=== PATIENT | female | born 1930 | race Caucasian/White ===

== ENCOUNTER → 2018-01-30 | Outpatient (CLI) | payer MEDICARE ==
[~2018-01-30] MED LIST: CHOL200024 PO; FOLI0.8T2 PO; FURO20TA3 PO; INSU100I28 SC; POTA8TAB6 PO; PRAV20TA2 PO; WARF2TAB99 PO
[2018-01-30 14:58] LABS: BASOPHILS # (AUTO) 0.03 x10^3/uL (0-0.1); BASOPHILS % (AUTO) 1 % (0-1); EOSINOPHILS # (AUTO) 0.07 x10^3/uL (0-0.4); EOSINOPHILS % (AUTO) 2 % (1-7); LYMPHOCYTES # (AUTO) 1.36 x10^3/uL (1-3.4); LYMPHOCYTES % (AUTO) 35 % (22-44); MD NO; MEAN CORPUSCULAR HEMOGLOBIN 24.4 pg (27.0-34.8); MEAN CORPUSCULAR HGB CONC 33.1 g/dL (32.4-35.8); MEAN CORPUSCULAR VOLUME 73.7 fL (80-100); MEAN PLATELET VOLUME 8.3 fL (7.4-10.4); MONOCYTES # (AUTO) 0.45 x10^3/uL (0.2-0.8); MONOCYTES % (AUTO) 12 % (2-9); NEUTROPHILS # (AUTO) 2.02 x10^3/uL (1.8-6.8); NEUTROPHILS % (AUTO) 52 % (42-75); PLATELET COUNT 370 x10^3/uL (130-400); RED BLOOD COUNT 4.38 x10^6/uL (3.82-5.3); RED CELL DISTRIBUTION WIDTH 16.4 % (9.6-15.2)
[2018-01-30 15:06] LABS: ALBUMIN 2.8 g/dL (3.4-5.0); ANION GAP 8 mmol/L (5-15); CALCIUM 9.7 mg/dL (8.5-10.1); CHLORIDE 101 mmol/L (98-107)
[2018-01-30 15:09] LABS: ALANINE AMINOTRANSFERASE 10 U/L (12-78); ALKALINE PHOSPHATASE 112 U/L (45-117); BILIRUBIN,TOTAL 0.5 mg/dL (0.2-1.0); CREATININE 1.79 mg/dL (0.55-1.02); TOTAL PROTEIN 8.8 g/dL (6.4-8.2)
[2018-01-30 15:12] LABS: HEMOGLOBIN A1C 9.1 % (4.2-6.3)
[2018-01-30 17:22] LABS: INTERNATIONAL NORMALIZED RATIO 2.5 (0.93-1.1); PROTHROMBIN TIME 25.3 Seconds (9.6-11.5)
== END | disposition home or self-care (01) ==
LOC: STAR 13:24
PROVIDERS: ATTEND Orthopaedic Surgery
DX: Z01.818 Encounter for other preprocedural examination (principal); S82.021D Displaced longitudinal fracture of right patella, subsequent encounter for closed fracture with routine healing; X58.XXXD Exposure to other specified factors, subsequent encounter
CPT/HCPCS: 36415; 80053; 83036; 85025; 85610; 85730; 87081; 87806; 93005; G0475

== ENCOUNTER 2019-12-28 12:06 | Inpatient (IN) | payer MEDICARE ==
[~2019-12-28] VITALS: Ht 147.3 cm; Wt 43.7 kg
--- NOTE | 2019-12-28 12:15 | NUR ---
PT BIB [facility] FROM HOME FOR INR GREATER THAN 8 PER . PT IS ON COUMADIN 1MG FOR HX DVT. 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 PT MOANS/CRIES WHEN SHE IS MOVED FROM [facility] TO [facility] OR TURNED TO THE SIDE. A&OX2 (AT BASELINE). VSS PER EMS. PT WITH NO COMPLAINTS.
[2019-12-28 12:36] LABS: MEAN CORPUSCULAR HEMOGLOBIN 25.1 pg (27.0-34.8); MEAN CORPUSCULAR HGB CONC 31.6 g/dL (32.4-35.8); MEAN PLATELET VOLUME 9.8 fL (7.4-10.4); PLATELET COUNT 224 x10^3/uL (130-400); RED BLOOD COUNT 3.47 x10^6/uL (3.82-5.3); RED CELL DISTRIBUTION WIDTH 18.8 % (9.6-15.2)
[2019-12-28 12:47] LABS: ALBUMIN 1.7 g/dL (3.4-5.0); ANION GAP 9 mmol/L (5-15); CALCIUM 9.5 mg/dL (8.5-10.1); CHLORIDE 99 mmol/L (98-107)
--- NOTE | 2019-12-28 12:49 | NUR ---
ERP AT NOW.
[2019-12-28 13:09] LABS: BASOPHILS # (AUTO) 0.02 x10^3/uL (0-0.1); BASOPHILS % (AUTO) 1 % (0-1); EOSINOPHILS # (AUTO) 0.02 x10^3/uL (0-0.4); EOSINOPHILS % (AUTO) 1 % (1-7); LYMPHOCYTES # (AUTO) 0.53 x10^3/uL (1-3.4); LYMPHOCYTES % (AUTO) 20 % (22-44); MD SCAN; MONOCYTES # (AUTO) 0.34 x10^3/uL (0.2-0.8); MONOCYTES % (AUTO) 13 % (2-9); NEUTROPHILS # (AUTO) 1.78 x10^3/uL (1.8-6.8); NEUTROPHILS % (AUTO) 66 % (42-75)
[2019-12-28 13:14] LABS: INTERNATIONAL NORMALIZED RATIO 11.65 (0.93-1.1); PROTHROMBIN TIME 126.6 Seconds (9.6-11.5)
--- NOTE | 2019-12-28 13:28 | NUR ---
STRAIGHT CATH DONE. FOB TEST DONE BY ERP. PT TOLERATED WELL. POC RV'WD WITH PT AND .
[2019-12-28] MEDS ORDERED: PHYTONADIONE 5 MG TABLET PO ONE (13:30)
[2019-12-28 13:32] LABS: MICROSCOPIC INDICATED
[2019-12-28] MEDS ORDERED: SODIUM CHLORIDE FLUSH 10ML SYR IVF PRN (14:00)
[2019-12-28] MEDS ORDERED: CEFTRIAXONE PMX 1GM/50ML 50 ML IV ONE (14:00)
[2019-12-28] MEDS ORDERED: CEFTRIAXONE PMX 1GM/50ML 50 ML ONE (14:27)
[2019-12-28 15:15] VITALS: BP 150/69
--- NOTE | 2019-12-28 15:17 | NUR ---
FFP INFUSING. PT AWAKE, NO S/S OF DISTRESS. PT AND UNDERSTAND PLAN FOR ADMISSION.
[2019-12-28 15:30] VITALS: BP 163/65
[2019-12-28 16:05] VITALS: BP 153/65
[2019-12-28 16:22] VITALS: BP 170/73
--- NOTE | 2019-12-28 16:22 | NUR ---
TASK RN: [facility]FP TRANSFUSION COMPELTE. PT TOLERATING WELL
[2019-12-28] MEDS ORDERED: IRON PO (17:04)
[2019-12-28] MEDS ORDERED: POLYETHYLENE GLYCOL 17 GM PACKET PO PRN (18:30)
[2019-12-28] MEDS ORDERED: BISACODYL 10 MG SUPP PR PRN (18:30)
[2019-12-28] MEDS ORDERED: DOCUSATE 100 MG CAPSULE PO PRN (18:30)
[2019-12-28 18:42] LABS: INTERNATIONAL NORMALIZED RATIO 2.69 (0.93-1.1); PROTHROMBIN TIME 28.8 Seconds (9.6-11.5)
[2019-12-28 19:30] VITALS: BP 134/74
[2019-12-28] MEDS: SODIUM CHLORIDE 0.9% 1,000 ML IV SCH (21:03)
[2019-12-28] MEDS: INSULIN GLARGINE 100 UNITS/ML, PEN SQ-INSULIN SCH (21:03)
[2019-12-28] MEDS: PRAVASTATIN 20 MG TABLET PO SCH (21:03)
[2019-12-28 21:40] LABS: INTERNATIONAL NORMALIZED RATIO 2.41 (0.93-1.1); PROTHROMBIN TIME 25.8 Seconds (9.6-11.5)
[2019-12-29 00:17] VITALS: BP 118/71
[2019-12-29 06:33] LABS: MEAN CORPUSCULAR HEMOGLOBIN 25.3 pg (27.0-34.8); MEAN CORPUSCULAR HGB CONC 32.4 g/dL (32.4-35.8); MEAN PLATELET VOLUME 9.2 fL (7.4-10.4); PLATELET COUNT 185 x10^3/uL (130-400); RED BLOOD COUNT 2.99 x10^6/uL (3.82-5.3); RED CELL DISTRIBUTION WIDTH 18.4 % (9.6-15.2)
[2019-12-29 06:41] LABS: INTERNATIONAL NORMALIZED RATIO 1.38 (0.93-1.1); PROTHROMBIN TIME 14.7 Seconds (9.6-11.5)
[2019-12-29 06:44] LABS: ALBUMIN 1.6 g/dL (3.4-5.0); ANION GAP 7 mmol/L (5-15); CHLORIDE 103 mmol/L (98-107)
[2019-12-29 06:50] VITALS: BP 142/55
[2019-12-29 06:56] LABS: ALANINE AMINOTRANSFERASE 10 U/L (12-78); ALKALINE PHOSPHATASE 93 U/L (45-117); BILIRUBIN,TOTAL 0.5 mg/dL (0.2-1.0); CREATININE 1.01 mg/dL (0.55-1.02); TOTAL PROTEIN 6.5 g/dL (6.4-8.2)
[2019-12-29 06:57] LABS: BASOPHILS # (AUTO) 0.02 x10^3/uL (0-0.1); BASOPHILS % (AUTO) 1 % (0-1); EOSINOPHILS # (AUTO) 0.04 x10^3/uL (0-0.4); EOSINOPHILS % (AUTO) 2 % (1-7); LYMPHOCYTES # (AUTO) 0.49 x10^3/uL (1-3.4); LYMPHOCYTES % (AUTO) 22 % (22-44); MD SCAN; MONOCYTES # (AUTO) 0.29 x10^3/uL (0.2-0.8); MONOCYTES % (AUTO) 13 % (2-9); NEUTROPHILS # (AUTO) 1.41 x10^3/uL (1.8-6.8); NEUTROPHILS % (AUTO) 63 % (42-75)
[2019-12-29] MEDS: SODIUM CHLORIDE 0.9% 1,000 ML IV SCH (10:28)
[2019-12-29] MEDS: PANTOPRAZOLE 40 MG IV IVPush SCH (10:28)
[2019-12-29] MEDS: INSULIN GLARGINE 100 UNITS/ML, PEN SQ-INSULIN SCH ×2 (10:29→20:49)
[2019-12-29 11:25] LABS: INTERNATIONAL NORMALIZED RATIO 1.24 (0.93-1.1); PROTHROMBIN TIME 13.2 Seconds (9.6-11.5)
[2019-12-29 13:08] VITALS: BP 125/78
[2019-12-29] MEDS: CEFTRIAXONE PMX 1GM/50ML 50 ML IV SCH (15:23)
[2019-12-29 20:44] VITALS: BP 137/80
[2019-12-29] MEDS: PRAVASTATIN 20 MG TABLET PO SCH (20:48)
[2019-12-30 02:00] VITALS: BP 133/72
[2019-12-30 07:02] LABS: MEAN CORPUSCULAR HEMOGLOBIN 25.8 pg (27.0-34.8); MEAN CORPUSCULAR HGB CONC 32.9 g/dL (32.4-35.8); MEAN PLATELET VOLUME 9.5 fL (7.4-10.4); PLATELET COUNT 202 x10^3/uL (130-400); RED BLOOD COUNT 3.01 x10^6/uL (3.82-5.3); RED CELL DISTRIBUTION WIDTH 18.5 % (9.6-15.2)
[2019-12-30 07:11] LABS: ANION GAP 7 mmol/L (5-15); CALCIUM 9.1 mg/dL (8.5-10.1); CHLORIDE 107 mmol/L (98-107); CREATININE 0.92 mg/dL (0.55-1.02)
[2019-12-30 07:21] VITALS: BP 149/79
[2019-12-30 07:40] LABS: INTERNATIONAL NORMALIZED RATIO 1.13 (0.93-1.1)
[2019-12-30 07:44] LABS: BASOPHILS # (AUTO) 0.02 x10^3/uL (0-0.1); BASOPHILS % (AUTO) 1 % (0-1); EOSINOPHILS # (AUTO) 0.03 x10^3/uL (0-0.4); EOSINOPHILS % (AUTO) 1 % (1-7); LYMPHOCYTES # (AUTO) 0.76 x10^3/uL (1-3.4); LYMPHOCYTES % (AUTO) 28 % (22-44); MD SCAN; MONOCYTES # (AUTO) 0.36 x10^3/uL (0.2-0.8); MONOCYTES % (AUTO) 13 % (2-9); NEUTROPHILS # (AUTO) 1.55 x10^3/uL (1.8-6.8); NEUTROPHILS % (AUTO) 57 % (42-75)
[2019-12-30] MEDS: INSULIN GLARGINE 100 UNITS/ML, PEN SQ-INSULIN SCH (09:11)
[2019-12-30] MEDS: PANTOPRAZOLE 40 MG IV IVPush SCH (09:12)
[2019-12-30 12:41] VITALS: BP 179/81
[2019-12-30] MEDS: CEFTRIAXONE PMX 1GM/50ML 50 ML IV SCH (14:00)
[2019-12-30] MEDS ORDERED: CEFD300C37 PO (14:09)
== END 2019-12-30 17:50 | disposition home health service (06) | DRG 689 ==
LOC: ED 13:54 → EDIP 13:56 → ED 14:14 → 3N 17:07
PROVIDERS: ADMIT Hospitalist; ATTEND Hospitalist
PROC: 30233K1 Transfusion of Nonautologous Frozen Plasma into Peripheral Vein, Percutaneous Approach (ICD-10-PCS; principal; 2019-12-28)
PROC: 0T9B70Z Drainage of Bladder with Drainage Device, Via Natural or Artificial Opening (ICD-10-PCS; 2019-12-28)
DX: N30.01 Acute cystitis with hematuria (principal); N17.0 Acute kidney failure with tubular necrosis; E87.1 Hypo-osmolality and hyponatremia; D50.0 Iron deficiency anemia secondary to blood loss (chronic); E86.0 Dehydration; R79.1 Abnormal coagulation profile; T45.515A Adverse effect of anticoagulants, initial encounter; E11.65 Type 2 diabetes mellitus with hyperglycemia; E78.5 Hyperlipidemia, unspecified; G30.9 Alzheimer's disease, unspecified; B95.0 Streptococcus, group A, as the cause of diseases classified elsewhere; F02.80 Dementia in other diseases classified elsewhere, unspecified severity, without behavioral disturbance, psychotic disturbance, mood disturbance, and anxiety; Z86.73 Personal history of transient ischemic attack (TIA), and cerebral infarction without residual deficits; Z86.718 Personal history of other venous thrombosis and embolism; Z79.01 Long term (current) use of anticoagulants; Y92.89 Other specified places as the place of occurrence of the external cause
CPT/HCPCS: 36415; 80048; 80053; 81001; 82040; 82962; 83036; 83735; 84100; 84443; 85014; 85018; 85025; 85610; 86850; 86900; 87077; 87086; G0378; J0696; C9113; J1815; J7030; P9017

== ENCOUNTER 2020-01-28 13:31 | Inpatient (IN) | payer MEDICARE ==
[~2020-01-28] VITALS: Ht 154.9 cm; Wt 45.0 kg
[~2020-01-28 13:31] MED LIST changes: +CEFD300C37 PO; +IRON PO
--- NOTE | 2020-01-28 13:37 | NUR ---
PT BROUGHT IN BY [facility] FROM HOME, SENT BY PAC, FOR CHIEF COMPLAINT OF WEAKNESS, HIGH BLOOD SUGAR, TACHYCARDIA. PT RECENTLY ADMITTED AT [facility] FOR ALOC, UTI, NEG COVID.
[2020-01-28] MEDS ORDERED: SODIUM CHLORIDE 0.9% 1,000ML IVBOLUS ONE (14:00)
[2020-01-28] MEDS ORDERED: PIPERACILLIN/TAZO/PMX 3.375GM 50 ML IVPB ONE (14:00)
[2020-01-28] MEDS ORDERED: PIPERACILLIN/TAZO/PMX 3.375GM 50 ML ONE (14:12)
[2020-01-28 14:15] LABS: MEAN CORPUSCULAR HEMOGLOBIN 24.2 pg (27.0-34.8); MEAN CORPUSCULAR HGB CONC 30.8 g/dL (32.4-35.8); MEAN CORPUSCULAR VOLUME 78.5 fL (80-100); MEAN PLATELET VOLUME 8.8 fL (7.4-10.4); PLATELET COUNT 291 x10^3/uL (130-400); RED BLOOD COUNT 3.04 x10^6/uL (3.82-5.3)
--- NOTE | 2020-01-28 14:17 | NUR ---
BLOOD CX DRAWN AND IV ABX HUNG, PATIENT'S SPOUSE AT BEDSIDE. CALL LIGHT WITHIN REACH, SIDE RAILS UP X2.
[2020-01-28 14:23] LABS: INTERNATIONAL NORMALIZED RATIO 1.32 (0.93-1.1); PROTHROMBIN TIME 13.6 Seconds (9.6-11.5)
[2020-01-28 14:27] LABS: ALANINE AMINOTRANSFERASE 15 U/L (12-78); ALBUMIN 1.6 g/dL (3.4-5.0); ANION GAP 7 mmol/L (5-15); CHLORIDE 112 mmol/L (98-107); CREATININE 1.44 mg/dL (0.55-1.02)
[2020-01-28 14:31] LABS: MD YES
[2020-01-28 14:32] LABS: ALKALINE PHOSPHATASE 120 U/L (45-117); BILIRUBIN,TOTAL 0.2 mg/dL (0.2-1.0); TOTAL PROTEIN 7.2 g/dL (6.4-8.2); TROPONIN I 0.026 ng/mL (0.000-0.045)
[2020-01-28 14:34] LABS: BAND#(MANUAL) 0.09 x10^3/uL; BANDS%(MANUAL) 3 % (0-7); BASOS#(MANUAL) 0.03 x10^3/uL (0-0.1); BASOS% (MANUAL) 1 % (0-1); EOS#(MANUAL) 0.06 x10^3/uL (0.0-0.4); EOS% (MANUAL) 2 % (1-7); LYMPH#(MANUAL) 1.02 x10^3/uL (1-3.4); LYMPHS% (MANUAL) 35 % (22-44); METAMYELOCYTES# (MANUAL) 0.09 x10^3/uL (0-0); METAMYELOCYTES% (MANUAL) 3 % (0-1); MONOS% (MANUAL) 7 % (2-9); MYELOCYTES# (MANUAL) 0.03 x10^3/uL (0-0); MYELOCYTES% (MANUAL) 1 % (0-0); SEG#(MANUAL) 1.39 x10^3/uL (1.8-6.8); SEGS% (MANUAL) 48 % (42-75)
[2020-01-28 14:35] LABS: ANISOCYTOSIS 1+; MICROCYTOSIS 1+; POLYCHROMASIA 1+
[2020-01-28 14:36] LABS: <PLATELET ESTIMATE> ADEQUATE; LARGE PLATELETS 1+
--- NOTE | 2020-01-28 15:08 | NUR ---
JAN collected, gricelda Gan at bedside to discuss POC.
[2020-01-28 15:45] LABS: ACETONE, SERUM Trace (Negative)
--- NOTE | 2020-01-28 15:55 | NUR ---
REPORT CALLED TO ILEANA ROTH ON MEDICAL TELEMETRY.
[2020-01-28 15:59] LABS: MICROSCOPIC INDICATED
--- NOTE | 2020-01-28 16:07 | NUR ---
COVID SWAB COLLECTED AND WALKED TO LAB.
[2020-01-28] MEDS ORDERED: ONDANSETRON 2MG/ML, 2ML IVPush PRN (16:30)
[2020-01-28] MEDS ORDERED: BISACODYL 10 MG SUPP PR PRN (16:30)
[2020-01-28] MEDS ORDERED: ONDANSETRON ODT 4 MG PO PRN (16:30)
[2020-01-28] MEDS ORDERED: hydrALAzine 20 MG/ML, 1ML IVPush PRN (16:30)
[2020-01-28] MEDS ORDERED: GUAIFENESIN/DM 200-20MG, 10ML UDC PO PRN (16:30)
[2020-01-28] MEDS ORDERED: LABETALOL 5MG/ML, 20ML IVPush PRN (16:30)
[2020-01-28] MEDS ORDERED: DEXTROSE 4 GM TAB.CHEW PO PRN (16:30)
[2020-01-28] MEDS ORDERED: POLYETHYLENE GLYCOL 17 GM PACKET PO PRN (16:30)
[2020-01-28] MEDS ORDERED: DOCUSATE 100 MG CAPSULE PO PRN (16:30)
[2020-01-28] MEDS ORDERED: GLUCAGON 1 MG IM PRN (16:30)
[2020-01-28] MEDS ORDERED: POTASSIUM CHLORIDE 20 MEQ TAB.ER.PRT PO ONE (16:30)
[2020-01-28] MEDS ORDERED: PHARMACY MAY ADJ FOR RENAL FX MC PRN (16:30)
[2020-01-28] MEDS ORDERED: ACETAMINOPHEN 325 MG TABLET PO PRN (16:30)
[2020-01-28] MEDS ORDERED: VANCOMYCIN PER PHARMACY MC PRN (16:30)
[2020-01-28] MEDS ORDERED: DEXTROSE 50%, 50ML SYRINGE IVPush PRN (16:30)
[2020-01-28 16:41] VITALS: BP 160/77
[2020-01-28] MEDS ORDERED: PHARMACOKINETIC CONSULTATION MC ONE (17:00)
[2020-01-28] MEDS ORDERED: VANCOMYCIN 1,200 MG in SODIUM CHLORIDE 0.9% 250 ML IV ONE (17:00)
[2020-01-28] MEDS ORDERED: PHARMACOKINETIC MONITORING MC PRN (17:00)
[2020-01-28] MEDS: SODIUM CHLORIDE 0.45% 1,000 ML IV SCH (17:43)
[2020-01-28] MEDS: CEFEPIME 2 GM in DEXTROSE 5% 100 ML IV SCH (17:48)
[2020-01-28] MEDS ORDERED: WARFARIN 2.5 MG TABLET PO-COUM ONE (18:00)
[2020-01-28] MEDS: INSULIN LISPRO 100 UNITS/ML, PEN SQ-INSULIN SCH ×2 (19:19→22:32)
[2020-01-28 19:21] VITALS: BP 134/70
[2020-01-28] MEDS: SODIUM CHLORIDE FLUSH 10ML SYR IVF SCH (20:37)
[2020-01-28] MEDS: PRAVASTATIN 20 MG TABLET PO SCH (20:37)
[2020-01-29 00:32] VITALS: BP 114/65
[2020-01-29] MEDS: CEFEPIME 2 GM in DEXTROSE 5% 100 ML IV SCH ×2 (01:51→09:47)
[2020-01-29] MEDS: SODIUM CHLORIDE 0.45% 1,000 ML IV SCH (05:14)
[2020-01-29 06:16] LABS: CHLORIDE 115 mmol/L (98-107); MEAN CORPUSCULAR HEMOGLOBIN 26.9 pg (27.0-34.8); MEAN CORPUSCULAR HGB CONC 32.8 g/dL (32.4-35.8); MEAN PLATELET VOLUME 9.6 fL (7.4-10.4); PLATELET COUNT 255 x10^3/uL (130-400); RED BLOOD COUNT 2.73 x10^6/uL (3.82-5.3); RED CELL DISTRIBUTION WIDTH 19.8 % (9.6-15.2)
[2020-01-29 06:25] LABS: ALANINE AMINOTRANSFERASE 10 U/L (12-78); ALBUMIN 1.3 g/dL (3.4-5.0); ALKALINE PHOSPHATASE 99 U/L (45-117); ANION GAP 5 mmol/L (5-15); BILIRUBIN,TOTAL 0.3 mg/dL (0.2-1.0); CALCIUM 9.9 mg/dL (8.5-10.1); CREATININE 1.08 mg/dL (0.55-1.02); TOTAL PROTEIN 6.7 g/dL (6.4-8.2)
[2020-01-29 06:54] LABS: MD YES
[2020-01-29 06:58] LABS: BAND#(MANUAL) 0.23 x10^3/uL; BANDS%(MANUAL) 6 % (0-7); LYMPH#(MANUAL) 1.33 x10^3/uL (1-3.4); LYMPHS% (MANUAL) 35 % (22-44); METAMYELOCYTES# (MANUAL) 0.04 x10^3/uL (0-0); METAMYELOCYTES% (MANUAL) 1 % (0-1); MONOS#(MANUAL) 0.46 x10^3/uL (0.3-2.7); MONOS% (MANUAL) 12 % (2-9); REACTIVE LYMPHS # (MANUAL) 0.08 x10^3/uL (0-0); REACTIVE LYMPHS % (MANUAL) 2 % (0-0); SEG#(MANUAL) 1.67 x10^3/uL (1.8-6.8); SEGS% (MANUAL) 44 % (42-75)
[2020-01-29 06:59] LABS: ANISOCYTOSIS 1+
[2020-01-29 07:00] LABS: <PLATELET ESTIMATE> ADEQUATE; POLYCHROMASIA 1+
[2020-01-29] MEDS: INSULIN LISPRO 100 UNITS/ML, PEN SQ-INSULIN SCH ×3 (07:00→20:11)
[2020-01-29 07:01] LABS: LARGE PLATELETS 1+
[2020-01-29] MEDS: CHOLECALCIFEROL 1,000 UNIT TABLET PO SCH (07:12)
[2020-01-29 07:17] VITALS: BP 140/72
[2020-01-29 08:13] LABS: INTERNATIONAL NORMALIZED RATIO 1.68 (0.93-1.1); PROTHROMBIN TIME 17.4 Seconds (9.6-11.5)
[2020-01-29] MEDS: SODIUM CHLORIDE FLUSH 10ML SYR IVF SCH ×2 (09:47→20:12)
[2020-01-29] MEDS: IRON SUCROSE COMPLEX 100MG/5ML IV SCH (09:47)
[2020-01-29] MEDS ORDERED: CEFEPIME 2 GM in DEXTROSE 5% 100 ML IV SCH (10:30)
--- NOTE | 2020-01-29 10:44 | NUR ---
D/C REC: SNF with ongoing dysphagia intervention Addendum: 01/29/20 at 1044 by Christine MORTON Amended: Links added.
[2020-01-29 12:56] VITALS: BP 148/73
[2020-01-29] MEDS: D5%-0.45NACL+KCL 20MEQ 1,000 ML IV SCH (15:32)
[2020-01-29] MEDS ORDERED: WARFARIN 2.5 MG TABLET PO-COUM ONE (18:00)
[2020-01-29] MEDS ORDERED: WARFARIN 5 MG TABLET PO-COUM ONE (18:22)
[2020-01-29] MEDS: PRAVASTATIN 20 MG TABLET PO SCH (19:06)
[2020-01-29 20:00] VITALS: BP 129/58
[2020-01-30 00:42] VITALS: BP 156/72
[2020-01-30] MEDS: INSULIN LISPRO 100 UNITS/ML, PEN SQ-INSULIN SCH ×4 (02:17→20:30)
[2020-01-30] MEDS: D5%-0.45NACL+KCL 20MEQ 1,000 ML IV SCH ×2 (03:18→20:29)
[2020-01-30 04:03] LABS: INTERNATIONAL NORMALIZED RATIO 3.71 (0.93-1.1); PROTHROMBIN TIME 38.7 Seconds (9.6-11.5)
[2020-01-30 06:55] VITALS: BP 152/66
[2020-01-30] MEDS ORDERED: HOLD COUMADIN MC PRN (08:00)
[2020-01-30 08:40] LABS: MEAN CORPUSCULAR HEMOGLOBIN 26.2 pg (27.0-34.8); MEAN CORPUSCULAR HGB CONC 33.2 g/dL (32.4-35.8); MEAN CORPUSCULAR VOLUME 79.1 fL (80-100); MEAN PLATELET VOLUME 9.6 fL (7.4-10.4); PLATELET COUNT 242 x10^3/uL (130-400); RED BLOOD COUNT 2.96 x10^6/uL (3.82-5.3); RED CELL DISTRIBUTION WIDTH 19.5 % (9.6-15.2)
[2020-01-30] MEDS: SODIUM CHLORIDE FLUSH 10ML SYR IVF SCH ×2 (09:00→20:29)
[2020-01-30] MEDS: CHOLECALCIFEROL 1,000 UNIT TABLET PO SCH (09:00)
[2020-01-30 09:02] LABS: MD YES
[2020-01-30 09:07] LABS: BAND#(MANUAL) 0.31 x10^3/uL; BANDS%(MANUAL) 11 % (0-7); BASOS#(MANUAL) 0.06 x10^3/uL (0-0.1); BASOS% (MANUAL) 2 % (0-1); EOS#(MANUAL) 0.08 x10^3/uL (0.0-0.4); EOS% (MANUAL) 3 % (1-7); LYMPH#(MANUAL) 0.73 x10^3/uL (1-3.4); LYMPHS% (MANUAL) 26 % (22-44); METAMYELOCYTES# (MANUAL) 0.03 x10^3/uL (0-0); METAMYELOCYTES% (MANUAL) 1 % (0-1); MONOS#(MANUAL) 0.34 x10^3/uL (0.3-2.7); MONOS% (MANUAL) 12 % (2-9); SEG#(MANUAL) 1.26 x10^3/uL (1.8-6.8); SEGS% (MANUAL) 45 % (42-75)
[2020-01-30 09:08] LABS: <PLATELET ESTIMATE> ADEQUATE; ANISOCYTOSIS 1+; MICROCYTOSIS 1+; POLYCHROMASIA 1+
[2020-01-30 09:09] LABS: LARGE PLATELETS 1+
[2020-01-30] MEDS ORDERED: CEFEPIME 2 GM in DEXTROSE 5% 100 ML IV SCH (10:00)
[2020-01-30] MEDS: IRON SUCROSE COMPLEX 100MG/5ML IV SCH (10:06)
[2020-01-30] MEDS ORDERED: ENOXAPARIN 40 MG/0.4 ML SQ SCH (12:00)
[2020-01-30] MEDS ORDERED: Enoxaparin 1 mg/kg protocol SQ SCH (12:00)
[2020-01-30 12:27] VITALS: BP 172/66
[2020-01-30 14:02] VITALS: BP 139/71
[2020-01-30] MEDS: AMPICILLIN/SULBACTAM 3 GM in SODIUM CHLORIDE 0.9% 100 ML IV SCH ×2 (15:00→20:30)
[2020-01-30 18:59] VITALS: BP 155/71
[2020-01-30] MEDS: PRAVASTATIN 20 MG TABLET PO SCH (20:30)
[2020-01-31 01:12] VITALS: BP 115/71
[2020-01-31] MEDS: AMPICILLIN/SULBACTAM 3 GM in SODIUM CHLORIDE 0.9% 100 ML IV SCH ×3 (02:59→21:52)
[2020-01-31] MEDS: INSULIN LISPRO 100 UNITS/ML, PEN SQ-INSULIN SCH ×4 (03:00→21:51)
[2020-01-31 06:43] VITALS: BP 129/65
[2020-01-31 07:32] LABS: INTERNATIONAL NORMALIZED RATIO 7.37 (0.93-1.1); PROTHROMBIN TIME 77.5 Seconds (9.6-11.5)
[2020-01-31] MEDS ORDERED: PHYTONADIONE 10 MG in SODIUM CHLORIDE 0.9% 50 ML IV ONE (08:30)
[2020-01-31 08:47] LABS: PROTHROMBIN TIME 73.9 Seconds (9.6-11.5)
[2020-01-31 08:48] LABS: INTERNATIONAL NORMALIZED RATIO 7.03 (0.93-1.1)
[2020-01-31] MEDS: CHOLECALCIFEROL 1,000 UNIT TABLET PO SCH (09:00)
[2020-01-31] MEDS: IRON SUCROSE COMPLEX 100MG/5ML IV SCH (09:20)
[2020-01-31] MEDS: SODIUM CHLORIDE FLUSH 10ML SYR IVF SCH ×2 (09:20→21:51)
[2020-01-31 12:04] VITALS: BP 136/64
[2020-01-31] MEDS: D5%-0.45NACL+KCL 20MEQ 1,000 ML IV SCH (16:49)
[2020-01-31] MEDS ORDERED: VANCOMYCIN 1,000 MG in SODIUM CHLORIDE 0.9% 250 ML IV SCH (18:00)
[2020-01-31 20:03] VITALS: BP 158/71
[2020-01-31] MEDS: PRAVASTATIN 20 MG TABLET PO SCH (20:52)
[2020-02-01 01:34] VITALS: BP 155/72
[2020-02-01] MEDS: INSULIN LISPRO 100 UNITS/ML, PEN SQ-INSULIN SCH ×4 (03:46→20:49)
[2020-02-01] MEDS: D5%-0.45NACL+KCL 20MEQ 1,000 ML IV SCH ×2 (05:48→20:48)
[2020-02-01 06:14] LABS: INTERNATIONAL NORMALIZED RATIO 1.19 (0.93-1.1); PROTHROMBIN TIME 12.3 Seconds (9.6-11.5)
[2020-02-01] MEDS: CHOLECALCIFEROL 1,000 UNIT TABLET PO SCH (09:00)
[2020-02-01] MEDS: IRON SUCROSE COMPLEX 100MG/5ML IV SCH (09:12)
[2020-02-01] MEDS: SODIUM CHLORIDE FLUSH 10ML SYR IVF SCH ×2 (09:12→20:48)
[2020-02-01] MEDS: AMPICILLIN/SULBACTAM 3 GM in SODIUM CHLORIDE 0.9% 100 ML IV SCH ×2 (10:26→22:41)
[2020-02-01 12:54] VITALS: BP 134/84
[2020-02-01 18:44] VITALS: BP 154/75
[2020-02-01] MEDS: PRAVASTATIN 20 MG TABLET PO SCH (20:42)
[2020-02-02 01:49] VITALS: BP 169/85
[2020-02-02] MEDS: INSULIN LISPRO 100 UNITS/ML, PEN SQ-INSULIN SCH (03:00)
[2020-02-02 04:44] LABS: INTERNATIONAL NORMALIZED RATIO 1.2 (0.93-1.1); PROTHROMBIN TIME 12.4 Seconds (9.6-11.5)
[2020-02-02 07:49] VITALS: BP 135/76
== END 2020-02-02 11:13 | disposition hospice, home (50) | DRG 871 ==
LOC: ED 15:51 → EDIP 16:12 → 4EST 16:26 → 4WST 01-30 13:12 → 4EST 01-31 01:22
PROVIDERS: ADMIT Family Medicine; ATTEND Hospitalist
PROC: 0T9B70Z Drainage of Bladder with Drainage Device, Via Natural or Artificial Opening (ICD-10-PCS; principal; 2020-01-28)
DX: A41.9 Sepsis, unspecified organism (principal); E11.00 Type 2 diabetes mellitus with hyperosmolarity without nonketotic hyperglycemic-hyperosmolar coma (NKHHC); E43 Unspecified severe protein-calorie malnutrition; J69.0 Pneumonitis due to inhalation of food and vomit; J96.01 Acute respiratory failure with hypoxia; Z68.1 Body mass index [BMI] 19.9 or less, adult; E87.0 Hyperosmolality and hypernatremia; R47.02 Dysphasia; N18.9 Chronic kidney disease, unspecified; I12.9 Hypertensive chronic kidney disease with stage 1 through stage 4 chronic kidney disease, or unspecified chronic kidney disease; L89.159 Pressure ulcer of sacral region, unspecified stage; F03.90 Unspecified dementia, unspecified severity, without behavioral disturbance, psychotic disturbance, mood disturbance, and anxiety; B96.89 Other specified bacterial agents as the cause of diseases classified elsewhere; D50.9 Iron deficiency anemia, unspecified; E11.22 Type 2 diabetes mellitus with diabetic chronic kidney disease; E86.0 Dehydration; E87.6 Hypokalemia; R13.10 Dysphagia, unspecified; Z66 Do not resuscitate; Z74.01 Bed confinement status; Z79.01 Long term (current) use of anticoagulants; Z82.5 Family history of asthma and other chronic lower respiratory diseases; Z86.19 Personal history of other infectious and parasitic diseases; Z20.828 Contact with and (suspected) exposure to other viral communicable diseases
CPT/HCPCS: 36415; 71045; 80053; 81001; 82010; 82728; 82962; 83540; 83550; 83605; 83615; 83735; 83930; 84100; 84145; 84443; 84466; 84484; 85025; 85610; 86140; 87040; 87076; 87635; 93005; 96365; 99285; G0378; J0295; J1650; J1756; J2543; J3370; J3430; J1815; J3480; J7030; J7050